=== PATIENT | male | born 1950 | race Caucasian/White ===

== ENCOUNTER → 2019-11-30 | Outpatient (CLI) | payer OTHER, MEDICARE ==
[~2019-11-30] MED LIST: FISH OIL 1,0001 EAC9 PO; NORCO 10-325 T1 EACH PO; VITAMIN D3125 MC1 PO; VITAMIN E400 UNIT PO; XARELTO10 MG PO; ZINC30 MG PO
== END ==
LOC: LAB 08:18
PROVIDERS: ATTEND Orthopaedic Surgery
DX: Z01.812 Encounter for preprocedural laboratory examination (principal); Z20.828 Contact with and (suspected) exposure to other viral communicable diseases

== ENCOUNTER 2019-12-06 08:07 | Inpatient (IN) | payer OTHER, MEDICARE ==
--- NOTE | 2019-11-30 09:11 | EKG ---
[facility] [place] [address] ELECTROCARDIOGRAM REPORT Name: JAZMYNE GARCIA Room #: PRE IN M.R.#: [id number] Admission: Attend Phys: Av Purcell MD Discharge: Date of : 50 Report #: [id number] THIS REPORT FOR: cc: Alice Durham Linda J. DO Lundgren,Sky Bates MD 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 11/30/19910 Sky oTm MD, [facility] /EPI
[2019-11-30 09:19] LABS: HEMATOCRIT 42.9 % (42.0-52.0); HEMOGLOBIN 14.1 gm/dL (14.0-18.0); MCH 30.6 pg (26.0-34.0); MCV 92.9 fL (80.0-100.0); RBC 4.62 mil/uL (4.50-6.00); RDW 14.5 % (10.5-14.5); WBC 5.3 thou/uL (4.0-11.0)
[2019-11-30 09:25] LABS: URINE BILIRUBIN NEGATIVE (Negative); URINE BLOOD NEGATIVE (Negative); URINE CLARITY CLEAR; URINE COLOR YELLOW; URINE GLUCOSE-RANDOM* NEGATIVE (Negative); URINE KETONES NEGATIVE (Negative); URINE LEUKOCYTES-REFLEX NEGATIVE (Negative); URINE NITRITE-REFLEX NEGATIVE (Negative); URINE PROTEIN (DIPSTICK) NEGATIVE (Negative); URINE SPECIFIC GRAVITY >= 1.030 (1.005-1.035); URINE UROBILINOGEN 0.2 E.U./dl (0.2-1.0)
[2019-11-30 09:26] LABS: ALBUMIN 3.8 g/dL (3.4-5.0); CALCIUM 8.8 mg/dL (8.5-10.1); CREATININE 0.9 mg/dL (0.7-1.3); POTASSIUM 4.5 mmol/L (3.5-5.1)
[2019-11-30 09:31] LABS: PROTIME 10.4 Seconds (9.3-11.4)
[~2019-12-06] VITALS: Ht 182.9 cm; Wt 94.3 kg
[~2019-12-06 08:07] MED LIST changes: -NORCO 10-325 T1 EACH PO; -XARELTO10 MG PO
[2019-12-06 09:06] VITALS: BP 137/80
--- NOTE | 2019-12-06 18:30 | NUR ---
PT RECEIVED FROM THE REC RM AT 1730 ALERT AND IN NO ACUTE DISTRESS. DENIES PAIN. LT HIP MARYJANE DSNG DRY. ICE PACK IN PLACE. LT THIGH HEMOVAC DRAINING SANGUINOUS DRAINAGE. TEDS AND SCD'S IN PLACE. AT BEDSIDE. PT EATING DINNER.
[2019-12-06 21:15] VITALS: BP 136/97
[2019-12-07 02:30] VITALS: BP 121/84
--- NOTE | 2019-12-07 03:04 | NUR ---
PT ALERT AMD AWKE,IN NO DISTRESS.PT UP TO THE BSC X1 NO BM NOTED.PT DENIED PAIN SO FAR.DRSG TO HIS L HIP C/D/I WITH ICE PACK IN PLACE.IVF AND IV ABX IFUSING ORDERED.PT RESTING ON HIS BED AT THIS TIME.CALL LIGHT WITHIN REACH.
[2019-12-07 04:52] LABS: HEMATOCRIT 38.9 % (42.0-52.0); MCH 31.1 pg (26.0-34.0); MCHC 33.4 g/dL (28.0-37.0); MCV 93.2 fL (80.0-100.0); RBC 4.17 mil/uL (4.50-6.00); RDW 14.2 % (10.5-14.5)
[2019-12-07 08:36] VITALS: BP 144/87
--- NOTE | 2019-12-07 09:36 | NUR ---
chart review. cm visited with pt at bedside, he up in recliner chair. cm cont to wear own mask and shield during visit. intro to cm, and transition of care. pt preferrs going by kitty, he is able to make his needs known. lives home with and one of his son. 7 steps up to house, 7 up to main level. 7 down for 14 steps have to do. no dme. do have grab bar by the toilet. he will need fww, provider plus to deliver prior to dc. pt hopeful to dc home on tuesday12/08/2019 with fww and hh with kojo jenkins. dcp: faxed dc orders to alice [phone].
--- NOTE | 2019-12-07 11:48 | O ---
[facility] [place] [address] OPERATIVE REPORT Name: JAZMYNE GARCIA Room #: 440-P [facility] IN M.R.#: [id number] Admission: 12/06/19 Attend Phys: Av Purcell MD Discharge: Date of : 50 Report #: [id number] THIS REPORT FOR: cc: Alice Durham,Av Mosher MD ~ CC: Av Durham DATE OF SERVICE: 12/06/2019 PREOPERATIVE DIAGNOSIS: End-stage degenerative arthritis, left hip. POSTOPERATIVE DIAGNOSIS: End-stage degenerative arthritis, left hip. PROCEDURE: Left total hip arthroplasty. SURGEON: Av Purcell MD INDICATIONS: This active, fit 69-year-old gentleman complains of severe progressive left hip pain. Clinical findings and x-rays confirm rather severe end-stage degenerative arthritis. He has elected to go ahead with total hip replacement. DESCRIPTION OF PROCEDURE: The patient was taken to the operating room where he was placed under general anesthesia. Prophylactic intravenous antibiotics were administered. He was turned to the right lateral decubitus position. The left hip, thigh and leg were meticulously prepped and draped. A slightly curving posterolateral skin incision was made. This was extended through muscle and fascia exposing the posterior aspect of the hip joint. The short external rotators and capsule were taken down and preserved and tagged with several #1 FiberWire sutures. The hip was dislocated posteriorly. Marked degenerative change on the acetabulum and the femoral head were noted. A moderate spurring around the margin of the acetabulum was debrided. A femoral neck osteotomy was performed. The Dubois and Nephew hip system was utilized. The canal was opened with reamers and hand broaches. The Dubois and Nephew Synergy size 14 femoral stem seemed to fit most appropriately. The trial stem was removed and attention directed to the acetabulum. The acetabulum was sequentially reamed, gradually advancing to a size 56 mm reamer. A size 56 mm StikTite 3-hole shell was then inserted. This was placed in alignment with his true acetabulum at about 45 degrees off of vertical and about 20 degrees of anteversion. It seated nicely and appeared to be quite secure. In addition, 3 cancellous screws were placed through the apical holes engaging good periacetabular bone adding to the purchase. A 40-mm polyethylene liner was then inserted, placing the 20-degree elevated rim at about the 10 o'clock posterior position. This was snapped into place and seated nicely and appeared to be secure. A size [address] [address] OPERATIVE REPORT Name: JAZMYNE GARCIA Room #: 440-P [facility] IN M.R.#: [id number] Admission: 12/06/19 Attend Phys: Av Purcell MD Discharge: Date of : 50 Report #: [id number] Synergy porous femoral component was then impacted into the canal, positioning this in about 10-15 degrees of anteversion. It also seated nicely and appeared to be secure. A trial reduction was performed and a size +4 neck length seemed to work best. The permanent 40 mm diameter head with a +4 mm neck length using a cobalt chrome head was selected. This was impacted on the Soliz taper. The hip was reduced and alignment, range of motion, stability and leg length were assessed and felt to be satisfactory. The wound was copiously irrigated. Good hemostasis was established. The short external rotators were repaired back to bone using #1 FiberWire sutures passed through small drill holes in the greater trochanter. This added nicely to stability. A single Hemovac was left in the wound exiting through a separate stab incision. The fascia was closed with multiple #1 Vicryl sutures. The subcutaneous tissues were closed with 0 Monocryl. The skin was closed with skin med. A sterile dressing was applied. The patient was awakened and returned to recovery room in good condition. <ELECTRONICALLY SIGNED> By: Av Purcell MD 12/07/19 1148 1225 1240 Av Purcell MD /nt
[2019-12-07] MEDS ORDERED: XARELTO10 MG PO (12:16)
[2019-12-07] MEDS ORDERED: NORCO 10-325 T1 EACH PO (12:17)
[2019-12-07 14:14] VITALS: BP 144/87
[2019-12-07 16:00] VITALS: BP 150/60
[2019-12-07 16:26] LABS: URINE BILIRUBIN NEGATIVE (Negative); URINE BLOOD NEGATIVE (Negative); URINE CLARITY CLEAR; URINE COLOR YELLOW; URINE GLUCOSE-RANDOM* TRACE (Negative); URINE KETONES NEGATIVE (Negative); URINE LEUKOCYTES-REFLEX NEGATIVE (Negative); URINE NITRITE-REFLEX NEGATIVE (Negative); URINE PROTEIN (DIPSTICK) NEGATIVE (Negative); URINE UROBILINOGEN 0.2 E.U./dl (0.2-1.0)
[2019-12-07 19:44] VITALS: BP 131/68
--- NOTE | 2019-12-07 21:07 | NUR ---
Assumed care of pt. at 0700. Pt. was calm and cooperative. Was able to walk very well with PT. Pt. did urinate large amounts in the morning and then returned to normal amounts after IV fluids weree DC'd. Hemovac was discontinued at end of shift. 200mL of blood removed from vac. Fall precautions in place.
--- NOTE | 2019-12-08 00:02 | NUR ---
1900 assumed care of pt after bedside report. 2029 BASELINE ASSESSMENT COMPLETED, PT RESTING IN BED, HEMOVAC DRAIN REMOVAL SITE DRESSING C/D/I, PT RESTING STATES NO PAIN AT ALL TO LEFT HIP, DRESSING TO SURGICAL SITE C/D/I, NO EDEMA CAP REFILL TO BLE <3 SENSATION AND MOVEMENT INTACT LLE P/W/D, FALL PRECAUTIONS IN PLACE SCDS IN PLACE WILL CONTINUE TO MONITOR
[2019-12-08 03:35] VITALS: BP 117/64
[2019-12-08 05:46] LABS: HEMATOCRIT 34.2 % (42.0-52.0); HEMOGLOBIN 11.3 gm/dL (14.0-18.0); RBC 3.64 mil/uL (4.50-6.00); RDW 14.3 % (10.5-14.5); WBC 9.2 thou/uL (4.0-11.0)
[2019-12-08 06:01] LABS: CALCIUM 8.2 mg/dL (8.5-10.1); POTASSIUM 4.2 mmol/L (3.5-5.1)
[2019-12-08 08:06] VITALS: BP 123/77
[2019-12-08] MEDS ORDERED: IRON325 M1 PO (12:42)
[2019-12-08] MEDS ORDERED: SENNA8.6 MG PO (12:42)
[2019-12-08] MEDS ORDERED: PEPCID20 MG PO (12:42)
[2019-12-08 12:59] VITALS: BP 144/87
--- NOTE | 2019-12-08 17:48 | NUR ---
Assumed care of pt. at 0700. Pt. was excited to discharged but anxious about how to get his medications due to our pharmacy being closed. All perscriptions were given to pt. along with orhto folder and teaching on dressing. Pt. left with belongings and .
== END 2019-12-08 14:01 | disposition home health service (06) | DRG 470 ==
LOC: PRE → TBA 08:07 → 4S 08:07 → PRE 08:15 → 4S 18:06
PROVIDERS: Internal Medicine; ADMIT Orthopaedic Surgery; ATTEND Orthopaedic Surgery
PROC: 0SRB02Z Replacement of Left Hip Joint with Metal on Polyethylene Synthetic Substitute, Open Approach (ICD-10-PCS; principal; 2019-12-06)
DX: M16.12 Unilateral primary osteoarthritis, left hip (principal); F41.9 Anxiety disorder, unspecified; K21.9 Gastro-esophageal reflux disease without esophagitis; D64.9 Anemia, unspecified; N40.0 Benign prostatic hyperplasia without lower urinary tract symptoms; Z88.2 Allergy status to sulfonamides; Z79.899 Other long term (current) drug therapy
CPT/HCPCS: 10102; 50010; 50101; 50382; 50414; 51412; 53000; 53367; 56521; 56525; 56530; 57095; 57103; 62110; 62900; 70005